=== PATIENT | female | born 1945 | race Caucasian/White ===

== ENCOUNTER 2016-06-11 09:56 | Emergency (ER) | payer MEDICARE, OTHER ==
[~2016-06-11] VITALS: Ht 166.4 cm; Wt 62.0 kg
[2016-06-11 10:03] VITALS: BP 106/64; PULSE 83; RESP 18; TEMP 98.6; O2SAT 95
[2016-06-11] MEDS ORDERED: ESTR0.07 T-DERMAL (10:23)
[2016-06-11] MEDS ORDERED: MULT1TAB84 PO (10:23)
[2016-06-11] MEDS ORDERED: ASPI1TAB69 PO (10:23)
[2016-06-11] MEDS ORDERED: methylPREDNISolone SOD SUCC 125 MG/2 ML VIAL IVP ONE (10:30)
[2016-06-11] MEDS ORDERED: SODIUM CHLOR 0.9% 1000 ML INJ 1,000 ML IV ONE (10:30)
[2016-06-11] MEDS ORDERED: RESP: ALBUTEROL 2.5 MG/IPRATROPIUM 0.5 MG NEB (SCH) INH ONE (10:30)
[2016-06-11] MEDS ORDERED: SODIUM CHLORIDE 0.9% FLUSH 5 ML FLUSH IVF PRN (10:30)
--- NOTE | 2016-06-11 10:32 | PD ---
HPI Chief Complaint: Cold / Flu Symptoms Time Seen by Provider: 10:19 Travel History International Travel<30 days: No Contact w/Intl Traveler<30days: No Traveled to known affect area: No History of Present Illness HPI Patient is a 71-year-old female who presents to emergency room with complaints of not feeling well for the past week. Patient reports that she has had increased postnasal drip, cough, congestion and sensation of "ear feeling clogged" for the past week. Reports that she recently few in to [place] from [place] and is here visiting for the month. Patient reports no sick contacts at home. She reports that she did have the influenza vaccine as well as a pneumococcal vaccine this year. Patient reports that she has been having subjective fevers and chills, reports that she has been coughing, reports that she has been had dry cough in the morning which becomes more thick and productive at nighttime. Denies any headaches or dizziness at this time. Denies chest pain or shortness of breath. Patient reports that she does not have any medical problems, she does admit to having a past history of smoking. Denies history of COPD. PFSH Past Medical History Hx Anticoagulant Therapy: Yes (BABY ASA DAILY) Diabetes: No Medical other: Yes (HISTOPLASMOSIS) Immunizations Current: Yes Tetanus Vaccination: Unknown ?: Not Past Surgical History Appendectomy: Yes Cholecystectomy: Yes Hysterectomy: Yes Thoracic Surgery: Yes (PARTIAL LOBECTOMY LEFT LOWER LOBE) Other Surgery: Yes (SKIN CANCER RIGHT INNER ANKLE AREA) Social History Alcohol Use: Yes (DAILY 2-3 GLASSES OF WINE) Tobacco Use: No (FORMER) Substance Use: No Allergies-Medications (Allergen,Severity, Reaction): Coded Allergies: Sulfa (Verified Allergy, Severe, 06/11/16) Reported Meds & Prescriptions Reported Meds & Active Scripts Active Levaquin (Levofloxacin) 750 Mg Tab 750 Mg PO DAILY 7 Days Reported Aspirin 81 Mg Tabdr 81 Mg PO DAILY Multivitamin Adults (Multiple Vitamins W/ Minerals) 1 Tab 1 Tab PO DAILY Estradiol Patch 168 HR (Estradiol) 0.075 Mg/24 Hr Patch 1 Patch T-DERMAL Q7D Remove old patch and discard when new patch being placed. Review of Systems General / Constitutional: No: Fever Eyes: No: Visual changes HENT: Positive: Sore Throat, Rhinorrhea, Congestion, Earache, No: Headaches, Lightheadedness, Neck Pain Cardiovascular: No: Chest Pain or Discomfort Respiratory: Positive: Cough, Wheezing, No: Shortness of Breath Gastrointestinal: No: Nausea, Vomiting, Abdominal Pain Genitourinary: No: Dysuria Musculoskeletal: No: Pain Skin: No Rash Neurologic: No: Weakness Psychiatric: No: Depression Endocrine: No: Polydipsia Hematologic/Lymphatic: No: Easy Bruising Physical Exam Narrative GENERAL: No acute distress, nontoxic SKIN: Warm and dry. HEAD: Atraumatic. Normocephalic. EYES: Pupils equal and round. No scleral icterus. No injection or drainage. ENT: No nasal bleeding or discharge. Mucous membranes pink and moist. Ears with no signs of infection, TMs are noninjected, normal-appearing no pus or fluid behind the ears, uvula midline with no swelling, posterior pharynx with no erythema or swelling, patient does have a postnasal drip NECK: Trachea midline. No JVD. CARDIOVASCULAR: Regular rate and rhythm. No murmur appreciated. RESPIRATORY: No accessory muscle use. Slight wheezing to right lower lung. Breath sounds equal bilaterally. GASTROINTESTINAL: Abdomen soft, non-tender, nondistended. Hepatic and splenic margins not palpable. MUSCULOSKELETAL: No obvious deformities. No clubbing. No cyanosis. No edema. NEUROLOGICAL: Awake and alert. No obvious cranial nerve deficits. Motor grossly within normal limits. Normal speech. PSYCHIATRIC: Appropriate mood and affect; insight and judgment normal. Data Data Last Documented VS Vital Signs Date Time Temp Pulse Resp B/P Pulse Ox O2 Delivery O2 Flow Rate FiO2 06/11/16 13:25 78 18 137/72 96 Room Air 06/11/16 10:03 98.6 Orders Complete Blood Count With Diff (06/11/16 10:24) Comprehensive Metabolic Panel (06/11/16 10:24) Influenzae A/B Antigen (06/11/16 10:24) Chest, Pa & Lat (06/11/16 10:24) Ecg Monitoring (06/11/16 10:24) Iv Access Insert/Monitor (06/11/16 10:24) Oximetry (06/11/16 10:24) Sodium Chloride 0.9% Flush (Ns Flush) (06/11/16 10:30) Methylprednisolone So Succ Inj (Solumedr (06/11/16 10:30) Albuterol-Ipratropium Neb (Duoneb Neb) (06/11/16 10:30) Sodium Chlor 0.9% 1000 Ml Inj (Ns 1000 M (06/11/16 10:30) Levofloxacin 750 Mg Premix Inj (Levaquin (06/11/16 12:45) Labs Laboratory Tests Test 06/11/16 06/11/16 11:00 11:20 White Blood Count 9.9 TH/MM3 Red Blood Count 4.80 MIL/MM3 Hemoglobin 14.4 GM/DL Hematocrit 43.8 % Mean Corpuscular Volume 91.1 FL Mean Corpuscular Hemoglobin 30.1 PG Mean Corpuscular Hemoglobin 33.0 % Concent Red Cell Distribution Width 13.0 % Platelet Count 213 TH/MM3 Mean Platelet Volume 9.4 FL Neutrophils (%) (Auto) 64.3 % Lymphocytes (%) (Auto) 19.2 % Monocytes (%) (Auto) 11.6 % Eosinophils (%) (Auto) 0.7 % Basophils (%) (Auto) 4.2 % Neutrophils # (Auto) 6.4 TH/MM3 Lymphocytes # (Auto) 1.9 TH/MM3 Monocytes # (Auto) 1.1 TH/MM3 Eosinophils # (Auto) 0.1 TH/MM3 Basophils # (Auto) 0.4 TH/MM3 CBC Comment DIFF FINAL Differential Comment Sodium Level 141 MEQ/L Potassium Level 3.6 MEQ/L Chloride Level 102 MEQ/L Carbon Dioxide Level 27.7 MEQ/L Anion Gap 11 MEQ/L Blood Urea Nitrogen 17 MG/DL Creatinine 0.69 MG/DL Estimat Glomerular Filtration 84 ML/MIN Rate Random Glucose 115 MG/DL Calcium Level 8.9 MG/DL Total Bilirubin 0.4 MG/DL Aspartate Amino Transf 16 U/L (AST/SGOT) Alanine Aminotransferase 32 U/L (ALT/SGPT) Alkaline Phosphatase 140 U/L Total Protein 7.3 GM/DL Albumin 3.0 GM/DL MDM Medical Decision Making Medical Screen Exam Complete: Yes Emergency Medical Condition: Yes Interpretation(s) Vital Signs Date Time Temp Pulse Resp B/P Pulse Ox O2 Delivery O2 Flow Rate FiO2 06/11/16 10:16 18 95 Room Air 06/11/16 10:03 98.6 83 18 106/64 95 Differential Diagnosis Influenza, pneumonia, COPD exacerbation, viral syndrome Narrative Course Patient is a 71-year-old female who presents to emergency room with complaints of increased sinus congestion, ear pain, postnasal drip with cough and thick mucus production for the past week. Patient with subjective fevers and chills for the past week. Patient with no sick contacts at home. Patient reports "i just feel horrible and I think that I have bronchitis." Reports that she gets these similar symptoms every year and she is usually treated with antibiotics and as well on them. Overall, patient is nontoxic and evaluation. Vital signs are stable. Plan to obtain x-ray of chest to evaluate for possible pneumonia. Will check for influenza. Patient does have slight wheezing to her right lower lobe of lung, administer steroids as well as a breathing treatment. CBC: WBC 9.9 Hemoglobin 14.4 Hematocrit 43.8 Platelets 213 bmp: Sodium 141 Chloride 102 BUN 17 Creatinine 0.69 Influenza A and B: Negative chest xray: diffuse interstial opacities with nodular opacity in the left upper lobe of lung. VSS, patient with no leukocytosis. i offered patient admission as she does have diffuse interstitial opacities - pt does not want to be admitted to the hospital at this time. plan to treat with antibiotics and discharge patient to home. signs and symptoms of when to return to ER reviewed with patient in detail. patient appreciative of care a copy of pt's xray report was given to her as she does have diffuse opacities throughout her lungs with nodular opacity of the left upper lobe. Diagnosis Primary Impression: Pneumonia Qualified Code: J18.9 - Pneumonia of both lungs due to infectious organism, unspecified part of lung Patient Instructions: General Instructions Additional Instructions: Please return to emergency room if you develop progressing or worsening symptoms Take on antibiotics as prescribed Please follow-up with your primary care doctor as soon as possible Med/Other Pt SpecificInfo: Prescription(s) given Scripts Fluconazole (Diflucan)150 Mg [id number] Mg PO ONCE #2 TAB Ref 0 Prov:Hafsa Soliz DO 06/11/16 Levofloxacin (Levaquin)750 Mg [id number] Mg PO DAILY 7 Days Ref 0 Prov:Hafsa Soliz DO 06/11/16 Disposition: 01 DISCHARGE HOME Condition: Stable Hafsa Soliz DO Jun 11, 2016 10:32
[2016-06-11 11:00] VITALS: BP 134/67; PULSE 72; RESP 18; O2SAT 97
[2016-06-11 11:09] VITALS: RESP 18; O2SAT 97
[2016-06-11 11:11] LABS: AUTOMATED NEUTROPHIL # 6.4 TH/MM3 (1.8-7.7); BASOPHIL # 0.4 TH/MM3 (0-0.2); BASOPHIL % 4.2 % (0.0-2.0); EOSINOPHIL # 0.1 TH/MM3 (0-0.4); EOSINOPHIL % 0.7 % (0.0-4.0); HEMATOCRIT 43.8 % (35.0-46.0); HEMO FLAGS DIFF FINAL; LYMPH % 19.2 % (9.0-44.0); LYMPHOCYTE # 1.9 TH/MM3 (1.0-4.8); MEAN CELL VOLUME 91.1 FL (80.0-100.0); MEAN CORPUSCULAR HEMOGLOBIN 30.1 PG (27.0-34.0); MONO % 11.6 % (0.0-8.0); NEUT % 64.3 % (16.0-70.0); PLATELET COUNT 213 TH/MM3 (150-450); WHITE BLOOD COUNT 9.9 TH/MM3 (4.0-11.0)
[2016-06-11 11:34] LABS: SODIUM (NA) 141 MEQ/L (136-145)
[2016-06-11 11:35] LABS: CHLORIDE 102 MEQ/L (98-107); POTASSIUM 3.6 MEQ/L (3.5-5.1)
[2016-06-11 11:38] LABS: ANION GAP 11 MEQ/L (5-15); BICARBONATE 27.7 MEQ/L (21.0-32.0); BLOOD UREA NITROGEN 17 MG/DL (7-18)
[2016-06-11 11:41] LABS: ALT (GPT) 32 U/L (10-53); AST (GOT) 16 U/L (15-37); GLOMERULAR FILTRATION RATE 84 ML/MIN (>89)
[2016-06-11 11:43] LABS: ALKALINE PHOSPHATASE 140 U/L (45-117); TOTAL BILIRUBIN ADULT 0.4 MG/DL (0.2-1.0)
--- NOTE | 2016-06-11 12:22 | RADHPO ---
EXAM DATE/TIME: 06/11/2016 12:02 [facility] COMPARISON: No previous studies available for comparison. INDICATIONS : Cough, congestion, and chest pain for one week. MEDICAL HISTORY : None. SURGICAL HISTORY : None. ENCOUNTER: Initial ACUITY: 4 - 6 days PAIN SCORE: 2/10 LOCATION: Bilateral chest FINDINGS: Mild diffuse interstitial opacities are seen, age-indeterminate but could be indicative of an acute a typical pneumonia/pneumonitis. There is an approximately 15 mm vague nodular opacity projected over t he left upper lobe. No pleural effusion or pneumothorax. Normal heart size. No evidence of lymphadenopathy. CONCLUSION: Diffuse interstitial opacities as above. Also a nodular opacity of the left upper lobe. Noncontrast c hest CT suggested. Andrea Hills MD on June 11, 2016 at 12:19 Board Certified Radiologist. This report was verified electronically.
[2016-06-11 12:30] VITALS: BP 134/65; PULSE 72; RESP 18; O2SAT 97
[2016-06-11] MEDS ORDERED: LEVA750T PO (12:41)
[2016-06-11] MEDS ORDERED: LEVOFLOXACIN 750 MG PREMIX INJ 150 ML IV ONE (12:45)
[2016-06-11 13:25] VITALS: BP 137/72; PULSE 78; RESP 18; O2SAT 96
[2016-06-11 14:25] VITALS: BP 127/71; PULSE 84; RESP 18; O2SAT 96
[2016-06-11] MEDS ORDERED: DIFL150T PO (14:45)
== END 2016-06-11 15:01 | disposition home or self-care (01) ==
LOC: PHED 09:56
DX: J18.9 Pneumonia, unspecified organism (principal)
CPT/HCPCS: 71020; 80053; 85025; 87804; 94664; 96361; 96365; 96375; 99283; J1956; J2930; J7030